=== PATIENT | male | born 1990 | race Caucasian/White ===

== ENCOUNTER 2021-01-17 13:01 | Emergency (ER) | payer SELFPAY ==
[2021-01-17 14:04] VITALS: PULSE 93; RESP 20; TEMP 36.6; O2SAT 98; BMI 45.1
--- NOTE | 2021-01-17 14:51 | ED_ITS ---
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 Patient tells me he had an episode of Botello's palsy at the age of 13 and again at the age of 14 that was treated successfully with steroids. He states he underwent neurology evaluation at that time and they never found a cause. Patient has no complaints of a headache, neck pain, visual changes. He does state his right eye is watering secondary to him not being able to close it. He denies numbness, tingling, loss of sensation, weakness to his upper or lower extremities. He is not having any issues with balance or gait. Onset (ago): hour(s) Location: right face History of same: Yes Relieving factors: none Exacerbating factors: none On Anticoagulants: No Associated symptoms: Deny chest pain, headache(s), malaise, nausea or vomiting Treatments Prior to Arrival: none Review of Systems Const: Denies: fever(s), chills, body aches, fatigue or malaise Eyes: Reports: dry eyes (R) and other (tearing from R eye); Denies: change in vision, blurry vision, photophobia, floaters or seeing flashes Card: Denies: chest pain Resp: Denies: dyspnea GI: Denies: abdominal pain, nausea or vomiting Musc: Denies: neck pain, back pain, extremity pain or joint pain Skin/Breast: Denies: rash Neuro: Reports: other (R sided facial droop); Denies: headache(s), numbness in extremities, weakness in extremities, difficulty walking, frequent falls, dizziness, confusion, Slurred speech present, difficulty communicating thoughts, seizure-like activity or involuntary movements Physical Exam Const: COMMON NORMALS: no acute distress, patient oriented x3, no limitations and alert GENERAL APPEARANCE: cooperative NUTRITIONAL APPEARANCE: obese morbidly obese ORIENTATION/CONSCIOUSNESS: Yes awake, Yes oriented to person, Yes oriented to place and Yes oriented to time HENMT: COMMON NORMALS: normocephalic, atraumatic, external ears normal, EAC's normal and TM's normal bilaterally HEAD & SCALP: normocephalic and atraumatic EXTERNAL EAR: Yes external ears normal EXTERNAL AUDITORY CANAL: EAC's normal TYMPANIC MEMBRANE: TM's normal bilaterally MOUTH: Normal oral and palatal mucosa present and tongue normal THROAT: posterior oropharynx normal, tonsils normal and uvula midline Eye: COMMON NORMALS: Equal, round and reactive pupils present and EOMs intact bilaterally GENERAL EYE: normal light reflex PUPIL: Yes Equal, round and reactive pupils present DIRECT OPHTHALMOSCOPY: Yes normal light reflex Neck/C-Spine: COMMON NORMALS: full ROM, no lymphadenopathy and no meningeal signs Resp: COMMON NORMALS: normal respiratory effort and clear to auscultation bilaterally AUSCULTATION: clear to auscultation bilaterally Cardio: COMMON NORMALS: regular rate and regular rhythm RATE: regular rate RHYTHM: regular rhythm Extremity: COMMON NORMALS: normal to inspection and full ROM GENERAL: Yes normal exam except as noted Neuro: COMMON NORMALS: patient oriented x3 and moves all extremities SENSORIUM/ORIENTATION: Yes alert, Yes oriented to person, Yes oriented to place and Yes oriented to time MENINGEAL SIGNS: Yes no meningeal signs CRANIAL NERVES: Yes CN normal except as noted and Yes CN VII (facial) Laterality: right CN VII findings: facial droop, unable to puff cheeks, unable to raise eyebrow(s), weak closing of eye(s), asymmetrical smile, absence of eye blink in response to stimulus and other (reports taste is normal) COORDINATION/BALANCE: [id number] test normal SPEECH: speech normal GAIT: Yes Normal gait present COORDINATION: [id number] test normal Skin: COMMON NORMALS: no rashes or lesions noted GENERAL SKIN EXAM: no rashes or lesions noted TRAUMA: no lacerations or abrasions Course Vital Signs: Vital signs: Vital Signs Temperature 97.8 F 01/17/21 14:04 Pulse Rate 86 01/17/21 15:05 Respiratory Rate 18 01/17/21 15:05 Blood Pressure 193/139 01/17/21 15:05 Pulse Oximetry 97 01/17/21 15:05 MDM - Neuro Symptoms/Deficit MDM Narrative: Medical decision making narrative: 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 Will place patient on 10 day course of steroids. Discharge Plan Discharge Patient Disposition: Home Clinical Impression: Botello's palsy Condition: Stable Prescriptions: New prednisone 10 mg tablet 10 mg PO DAILY 10 Days Qty: 45 RF: 0 Discharge Orders: Discharge ED (Routine); Ordered 01/17/21 Ordered By: Lacy Stewart Referrals: Sheila Bhakta MD [Primary Care Provider] - Patient Instructions: Botello's Palsy, Botello Palsy (ED) Activity Restrictions/Additional Instructions: As we have discussed you would rather follow-up with primary care to see if neurology follow-up would be indicated at this time. We will place you on a 10- day course of prednisone. You may return to the emergency department at anytime for any further concerns you may have. Coding Level of Care Code ED [place] [employer] for Vannessa Woodall
[2021-01-17 15:05] VITALS: BP 193/139; PULSE 86; RESP 18; O2SAT 97
== END 2021-01-17 15:07 | disposition home or self-care (01) ==
PROVIDERS: Emergency Provider Physician Assistant; PCP Family Medicine
DX: G51.0 Bell's palsy (principal)
CPT/HCPCS: 99281

== ENCOUNTER → 2025-04-05 14:40 | Outpatient (BNVA) | payer OTHER, SELFPAY | PROVIDERS: PCP Nurse Practitioner Family; Visit Provider Nurse Practitioner Family | DX: I10 Essential (primary) hypertension (principal) | CPT/HCPCS: 80053; 80061; 83036; 83721; 84439; 84443; 85025 ==

== ENCOUNTER → 2025-04-21 10:00 | Outpatient (BNVA) | payer OTHER, SELFPAY | PROVIDERS: PCP Nurse Practitioner Family; Visit Provider Nurse Practitioner Family | DX: I10 Essential (primary) hypertension (principal) | CPT/HCPCS: 85025 ==